=== PATIENT | female | born 1960 | race African-American/Black ===

== ENCOUNTER 2017-03-27 10:09 | Outpatient (CLI) | payer MEDICARE, OTHER ==
[~2017-03-27] VITALS: Ht 154.9 cm; Wt 55.3 kg
[2017-03-27 10:34] VITALS: BP 109/78
[2017-03-27] MEDS ORDERED: MORPHINE IR15 MG ORAL (14:19)
[2017-03-27] MEDS ORDERED: GABAPENTIN300 MG ORAL (14:19)
[2017-03-27] MEDS ORDERED: OXYCODONE IR15 MG ORAL (14:19)
[2017-03-27] MEDS ORDERED: ADALAT20 MG ORAL (14:19)
[2017-03-27] MEDS ORDERED: VENTOLIN HFA18 GM INH (14:19)
[2017-03-27] MEDS ORDERED: ASPIR 8181 MG ORAL (14:19)
--- NOTE | 2017-03-27 14:21 | GI Initial Consult Note ---
History of Present Illness General Date patient seen: Mar 27, 2017 Time patient seen: 14:13 Referring physician: ZOHREH Reason for Consultation: ANEMIA / WT LOSS Present Illness HPI 56 year old female patient referred by Dr. Guerrier for complaint of abdominal pain and weight loss. The patient presents today with approximately 30 lbs weight loss. Last colonoscopy was greater than 5 years ago, pt unsure if she has any history of colonic polyps. No signs of abuse/neglect. Patient is a fall risk. Home Meds Reported Medications Aspirin* (ASPIR 81*) 81 Mg Tablet.dr, 81 MG ORAL DAILY, TAB 03/27/17 Gabapentin* (GABAPENTIN*) 300 Mg Capsule, 300 MG ORAL BEDTIME, CAP 03/27/17 Nifedipine (Nifedipine*) 20 Mg Capsule, 90 MG ORAL EVERY 8 HOURS, CAP 03/27/17 Albuterol Sulfate (VENTOLIN HFA) 18 Gm Hfa.aer.ad, 1 PUFF INH EVERY 6 HOURS, # 18 GM 0 Refills 03/27/17 Oxycodone HCl (Oxycodone HCl) 15 Mg Tablet, 30 MG ORAL Q4H Y, TAB 03/27/17 Morphine HCl (Morphine Sulfate ER) 15 Mg Tablet.er, 15 MG ORAL Q6H Y, TAB 03/27/17 Med list reviewed/reconciled: Yes Allergies: Coded Allergies: PENICILLINS (Verified Allergy, Unknown, 03/27/17) Patient History History Provided By: Patient, Medical Record H Narrative Asthma GERD HTN Anemia Past Surgical History: Left breast cyst removal Family History Narrative Both Brothers >> [place] Social History: Reports: drug use - medical marijuana, other - coffee Review of Systems All Other Systems: negative except mentioned in HPI Physical Exam Vital Signs Date Time Temp Pulse Resp B/P (MAP) Pulse Ox O2 Delivery O2 Flow Rate FiO2 03/27/17 10:34 97.7 70 16 109/78 100 Sp02 EP Interpretation: reviewed, normal General Appearance: well appearing, no apparent distress, alert Head: normocephalic EENT: PERRL/EOMI, normal ENT inspection Neck: supple Respiratory: normal breath sounds, no respiratory distress Cardiovascular: normal rate Gastrointestinal: normal inspection, non tender, soft, normal bowel sounds, non -distended Rectal: deferred Genitourinary: no CVA tenderness Musculoskeletal: normal inspection, back normal Neurologic: normal inspection, alert, oriented x3, responsive Psychiatric: normal inspection, judgement/insight normal, memory normal Skin: normal inspection, normal color, no rash, warm/dry, palpation normal, well hydrated Lymphatic: normal inspection, no adenopathy GI: Plan Problems: (1) Asthma (2) GERD (gastroesophageal reflux disease) (3) Weight loss (4) Anemia (5) HTN (hypertension) (6) Colonoscopy planned Plan EGD/colonoscopy scheduled for 04/04/17. - CLD & (Nulytely/Suprep/Movi-Prep) prep instructions given and acknowledged by patient. - NPO @ [place] day prior procedure explained. Seen with Dr. Torres. Thank you for this patient referral. Zuly Candelaria N.P. Mar 27, 2017 14:21
== END 2017-03-27 11:00 | disposition home or self-care (01) ==
LOC: PAN 10:09
DX: R10.9 Unspecified abdominal pain (principal); R63.4 Abnormal weight loss; Z91.81 History of falling; Z79.82 Long term (current) use of aspirin; Z88.0 Allergy status to penicillin; K21.9 Gastro-esophageal reflux disease without esophagitis; I10 Essential (primary) hypertension; J45.909 Unspecified asthma, uncomplicated; D64.9 Anemia, unspecified
CPT/HCPCS: 99201

== ENCOUNTER 2017-04-04 08:05 | Day surgery (SDC) | payer MEDICARE, OTHER ==
[2017-04-04] VITALS (8 sets, daily range): BP systolic 125–135; BP diastolic 90–96
[~2017-04-04] VITALS: Ht 154.9 cm; Wt 55.3 kg
[~2017-04-04 08:05] MED LIST: ADALAT20 MG ORAL; ASPIR 8181 MG ORAL; GABAPENTIN300 MG ORAL; LR 1000ml 1,000 ML IVLG SCH; MORPHINE IR15 MG ORAL; OXYCODONE IR15 MG ORAL; VENTOLIN HFA18 GM INH
[2017-04-04 09:13] LABS: BASOPHILS % (AUTO) 1.5 % (0.0-2.0); EOSINOPHILS % (AUTO) 0.1 % (0.0-3.0); LYMPHOCYTES % (AUTO) 20.7 % (20.0-45.0); MEAN CORPUSCULAR HEMOGLOBIN 29.3 PG (27.0-31.0); MEAN CORPUSCULAR HGB CONC 32.7 G/DL (32.0-36.0); MEAN CORPUSCULAR VOLUME 90 FL (80-99); MEAN PLATELET VOLUME 8.1 FL (6.5-10.1); MONOCYTES % (AUTO) 8.1 % (1.0-10.0); NEUTROPHILS % (AUTO) 69.7 % (45.0-75.0); PLATELET COUNT 230 K/UL (150-450); RED BLOOD COUNT 4.49 M/UL (4.20-5.40); RED CELL DISTRIBUTION WIDTH 12.3 % (11.6-14.8)
[2017-04-04 09:43] LABS: IRON 101 ug/dL (50-175); TOTAL IRON BINDING CAPACITY 329 ug/dL (250-450)
--- NOTE | 2017-04-04 09:44 | Pre-Procedure Note/Attestation ---
Pre-Procedure Note/Attestation Complete Prior to Procedure Planned Procedure: not applicable Procedure Narrative: esophagogastroduodenoscopy and colonoscopy Indications for Procedure Pre-Operative Diagnosis: anemia, wt loss Attestation I attest that I discussed the nature of the procedure; its benefits; risks and complications; and alternatives (and the risks and benefits of such alternatives ), prior to the procedure, with the patient (or the patient's legal new accounts representative). I attest that, if there was a reasonable possibility of needing a blood transfusion, the patient (or the patient's legal new accounts representative) was given the [facility] standardized written summary, pursuant to the [place] Blood Safety Act ([place] Health and Safety Code # 1645, as amended). I attest that I re-evaluated the patient just prior to the surgery and that there has been no change in the patient's H&P, except as documented below: RENE KENT Apr 04, 2017 09:44
--- NOTE | 2017-04-04 09:45 | Short Stay Surgery H&P ---
History of Present Illness History of Present Illness Chief Complaint see recent consult note HPI Keena Lau is a 56 year old female who was admitted on for Abdominal Pain, Weight Loss Patient History Allergies: Coded Allergies: PENICILLINS (Verified Allergy, Unknown, 04/04/17) cannot remember reaction PAST MEDICAL HISTORY: Past Surgeries: Social History: Medication History Scheduled Albuterol Sulfate (Ventolin Hfa), 1 PUFF INH EVERY 6 HOURS, (Reported) Aspirin* (Aspir 81*), 81 MG ORAL DAILY, (Reported) Gabapentin* (Gabapentin*), 300 MG ORAL BEDTIME, (Reported) Nifedipine (Nifedipine*), 90 MG ORAL EVERY 8 HOURS, (Reported) Scheduled PRN Morphine HCl (Morphine Sulfate ER), 15 MG ORAL Q6H PRN, (Reported) Oxycodone HCl (Oxycodone HCl), 30 MG ORAL Q4H PRN, (Reported) Physical Exam Vital Signs Last Vital Signs Date Time Temp Pulse Resp B/P (MAP) Pulse Ox O2 Delivery O2 Flow Rate FiO2 04/04/17 08:36 98.4 74 20 131/90 100 Room Air Labs Laboratory Tests Test 04/04/17 09:00 White Blood Count 4.0 K/UL (4.8-10.8) L Red Blood Count 4.49 M/UL (4.20-5.40) Hemoglobin 13.2 G/DL (12.0-16.0) Hematocrit 40.3 % (37.0-47.0) Mean Corpuscular Volume 90 FL (80-99) Mean Corpuscular Hemoglobin 29.3 PG (27.0-31.0) Mean Corpuscular Hemoglobin Concent 32.7 G/DL (32.0-36.0) Red Cell Distribution Width 12.3 % (11.6-14.8) Platelet Count 230 K/UL (150-450) Mean Platelet Volume 8.1 FL (6.5-10.1) Neutrophils (%) (Auto) 69.7 % (45.0-75.0) Lymphocytes (%) (Auto) 20.7 % (20.0-45.0) Monocytes (%) (Auto) 8.1 % (1.0-10.0) Eosinophils (%) (Auto) 0.1 % (0.0-3.0) Basophils (%) (Auto) 1.5 % (0.0-2.0) Sodium Level Pending Potassium Level Pending Chloride Level Pending Carbon Dioxide Level Pending Blood Urea Nitrogen Pending Creatinine Pending Estimat Glomerular Filtration Rate Pending Glucose Level Pending Calcium Level Pending Iron Level 101 ug/dL (50-175) Total Iron Binding Capacity 329 ug/dL (250-450) Percent Iron Saturation 31 % (15-50) Unsaturated Iron Binding 228 ug/dL (112-346) Total Bilirubin Pending Aspartate Amino Transf (AST/SGOT) Pending Alanine Aminotransferase (ALT/SGPT) Pending Alkaline Phosphatase Pending Total Protein Pending Albumin Pending Globulin Pending Amylase Level Pending Lipase Pending Plan Attestation Are the patient's medical conditions optimized for surgery? RENE KENT Apr 04, 2017 09:45
[2017-04-04 09:46] LABS: ALANINE AMINOTRANSFERASE 26 U/L (12-78); ALBUMIN/GLOBULIN RATIO 1.1 (1.0-2.7); AMYLASE 73 U/L (25-115); ANION GAP 9 mmol/L (5-15); ASPARTATE AMINO TRANSFERASE 17 U/L (15-37); CALCIUM 9.6 MG/DL (8.5-10.1); CARBON DIOXIDE 29 MMOL/L (21-32); CHLORIDE 105 MMOL/L (98-107); CREATININE 0.9 MG/DL (0.55-1.30); GLOMERULAR FILTRATION RATE > 60 mL/min (>60); LIPASE 103 U/L (73-393); POTASSIUM 3.9 MMOL/L (3.5-5.1); SODIUM 143 MMOL/L (136-145); TOTAL PROTEIN 8.2 G/DL (6.4-8.2)
[2017-04-04] MEDS ORDERED: LR 1000ml ONE (10:00)
[2017-04-04] MEDS ORDERED: Ketamine 500mg Inj ONE (10:00)
[2017-04-04] MEDS ORDERED: Propofol 200mg/20ml IV ONE (10:00)
[2017-04-04] MEDS ORDERED: Midazolam 2mg/2ml Inj ONE (10:00)
[2017-04-04] MEDS ORDERED: Lidocaine 1% MPF 10mg/ml 5ml ONE (10:00)
[2017-04-04] MEDS ORDERED: LR 1000ml 1,000 ML IVLG SCH (10:26)
--- NOTE | 2017-04-04 10:26 | Anethesia Preoperative Eval ---
Anesthesia Pre-op PMH/ROS General Date of Evaluation: Apr 04, 2017 Time of Evaluation: 10:09 Anesthesiologist: Bob ASA Score: ASA 3 Mallampati Score Class I : Soft palate, uvula, fauces, pillars visible Class II: Soft palate, uvula, fauces visible Class III: Soft palate, base of uvula visible Class IV: Only hard plate visible Mallampati Classification: Class II Surgeon: Melissa Diagnosis: Abd Pain Surgical Procedure: EGD/Colonoscopy Anesthesia History: none Social History: current smoker Family History: no anesthesia problems Allergies: Coded Allergies: PENICILLINS (Verified Allergy, Unknown, 04/04/17) cannot remember reaction Medications: see eMAR Past Medical History Cardiovascular: Reports: HTN Pulmonary: Reports: asthma Gastrointestinal/Genitourinary: Reports: GERD Neurologic/Psychiatric: Reports: other - Migranes HEENT: Reports: cataract (L), cataract (R) Hematology/Immune: Reports: anemia PSxH Narrative: Cyst Removal Anesthesia Pre-op Phys. Exam Physician Exam Last Vital Signs Date Time Temp Pulse Resp B/P (MAP) Pulse Ox O2 Delivery O2 Flow Rate FiO2 04/04/17 08:36 98.4 74 20 131/90 100 Room Air Constitutional: NAD Neurologic: CN 2-12 intact Cardiovascular: RRR Respiratory: CTA Gastrointestinal: S/NT/ND Airway Exam Mallampati Score: Class II MO: full ROM: limited Teeth: intact Anesthesia Pre-op A/P Labs Hematology Test 04/04/17 09:00 White Blood Count 4.0 K/UL (4.8-10.8) L Red Blood Count 4.49 M/UL (4.20-5.40) Hemoglobin 13.2 G/DL (12.0-16.0) Hematocrit 40.3 % (37.0-47.0) Mean Corpuscular Volume 90 FL (80-99) Mean Corpuscular Hemoglobin 29.3 PG (27.0-31.0) Mean Corpuscular Hemoglobin Concent 32.7 G/DL (32.0-36.0) Red Cell Distribution Width 12.3 % (11.6-14.8) Platelet Count 230 K/UL (150-450) Mean Platelet Volume 8.1 FL (6.5-10.1) Neutrophils (%) (Auto) 69.7 % (45.0-75.0) Lymphocytes (%) (Auto) 20.7 % (20.0-45.0) Monocytes (%) (Auto) 8.1 % (1.0-10.0) Eosinophils (%) (Auto) 0.1 % (0.0-3.0) Basophils (%) (Auto) 1.5 % (0.0-2.0) Chemistry Test 04/04/17 09:00 Sodium Level 143 MMOL/L (136-145) Potassium Level 3.9 MMOL/L (3.5-5.1) Chloride Level 105 MMOL/L (98-107) Carbon Dioxide Level 29 MMOL/L (21-32) Anion Gap 9 mmol/L (5-15) Blood Urea Nitrogen 12 mg/dL (7-18) Creatinine 0.9 MG/DL (0.55-1.30) Estimat Glomerular Filtration Rate > 60 mL/min (>60) Glucose Level 101 MG/DL (74-106) Calcium Level 9.6 MG/DL (8.5-10.1) Iron Level 101 ug/dL (50-175) Total Iron Binding Capacity 329 ug/dL (250-450) Percent Iron Saturation 31 % (15-50) Unsaturated Iron Binding 228 ug/dL (112-346) Total Bilirubin 0.8 MG/DL (0.2-1.0) Aspartate Amino Transf (AST/SGOT) 17 U/L (15-37) Alanine Aminotransferase (ALT/SGPT) 26 U/L (12-78) Alkaline Phosphatase 67 U/L (46-116) Total Protein 8.2 G/DL (6.4-8.2) Albumin 4.3 G/DL (3.4-5.0) Globulin 3.9 g/dL Albumin/Globulin Ratio 1.1 (1.0-2.7) Amylase Level 73 U/L (25-115) Lipase 103 U/L (73-393) Risk Assessment & Plan Assessment: ASA 3 Plan: GA Status Change Before Surgery: Saroj Jacob MD Apr 04, 2017 10:26
--- NOTE | 2017-04-04 10:28 | Immediate Post-Op Evaluation ---
Immediate Post-Op Evalulation Immediate Post-Op Evalulation Procedure: EGD/Colonoscopy Date of Evaluation: Apr 04, 2017 Time of Evaluation: 11:00 IV Fluids: 700 LR Blood Products: 0 Estimated Blood Loss: 1 Urinary Output: 0 Blood Pressure Systolic: 128 Blood Pressure Diastolic: 96 Pulse Rate: 89 Respiratory Rate: 16 O2 Sat by Pulse Oximetry: 100 Temperature (Fahrenheit): 97.8 Pain Score (1-10): 1 Nausea: No Vomiting: No Complications 0 Patient Status: awake, reacts, patent, none Hydration Status: adequate Saroj Rojas MD Apr 04, 2017 10:28
--- NOTE | 2017-04-04 10:29 | 48 Hour Post Anesthesia Eval ---
Post Anesthesia Evaluation Procedure: EGD/Colonoscopy Date of Evaluation: Apr 04, 2017 Time of Evaluation: 13:12 Blood Pressure Systolic: 132 0: 89 Pulse Rate: 91 Respiratory Rate: 18 Temperature (Fahrenheit): 98.4 O2 Sat by Pulse Oximetry: 99 Airway: patent Nausea: No Vomiting: No Pain Intensity: 1 Hydration Status: adequate Cardiopulmonary Status: Stable Mental Status/LOC: patient returned to baseline Follow-up Care/Observations: 0 Post-Anesthesia Complications: 0 Follow-up care needed: ready to discharge Saroj Rojas MD Apr 04, 2017 10:29
[2017-04-04] MEDS ORDERED: Hydromorphone 0.5mg/0.5ml inj IVP PRN (10:30)
[2017-04-04] MEDS ORDERED: Ketorolac 30mg Inj IV PRN ×2 (10:30)
[2017-04-04] MEDS ORDERED: Atropine Inj 1mg/10ml Syr IV PRN (10:30)
[2017-04-04] MEDS ORDERED: LORazepam Inj 2mg/ml 1ml IV PRN (10:30)
[2017-04-04] MEDS ORDERED: Norco 5mg/325mg tab ORAL PRN (10:30)
[2017-04-04] MEDS ORDERED: fentaNYL 100 mcg/2 mL IV PRN (10:30)
[2017-04-04] MEDS ORDERED: Metoclopramide 10mg/2ml Inj IVP PRN (10:30)
[2017-04-04] MEDS ORDERED: Midazolam 2mg/2ml Inj IVP PRN (10:30)
[2017-04-04] MEDS ORDERED: Norco 7.5mg/325mg tab ORAL PRN (10:30)
[2017-04-04] MEDS ORDERED: oxyCODONE HCL/Acetaminophen 5/325mg ORAL PRN (10:30)
[2017-04-04] MEDS ORDERED: DiphenhydrAMINE 50mg/ml Inj IVP PRN (10:30)
--- NOTE | 2017-04-04 20:01 | Procedure Note ---
DATE OF PROCEDURE: 04/04/2017 SURGEON: Erich Torres M.D. PROCEDURE: Upper endoscopy with biopsy and colonoscopy with biopsy. ANESTHESIOLOGIST: Saroj Rojas M.D. INSTRUMENT: Olympus adult flexible upper endoscope and colonoscope. INDICATION: Screening colonoscopy, abdominal pain, and anemia. REASON FOR PROCEDURE: The procedure, risks, benefits, and possible consequences, including hemorrhage, aspiration, perforation and infection, and alternative treatments, were explained to the patient/legal guardian by Dr. Erich Torres and the patient/legal guardian understood and accepted these risks. DESCRIPTION OF PROCEDURE: After informed consent was obtained and the patient was adequately sedated, Olympus upper endoscope was advanced from mouth into the second portion of the duodenum and retroflexion was performed in the stomach. The patient had evidence of diffuse gastritis. Random biopsy from antrum and body was obtained to rule out H. pylori infection. At this time, the upper endoscope was retrieved. The patient was turned over for colonoscopy. First, a rectal exam was performed which was positive for internal hemorrhoids. Then, the scope was advanced from the rectum into the cecum documented by appendiceal orifice, ileocecal valve, and upper quadrant palpation. Quality of prep was overall good. The patient had a total of 7 diminutive polyps, 6 in the rectosigmoid area, 1 in the sigmoid, which were all removed with biopsy forceps technique. The patient also had some evidence of scattered diverticulosis. No obvious diverticulitis was seen. Retroflexion of rectum showed evidence of internal hemorrhoids. SUMMARY FINDINGS: 1. Gastritis. 2. Seven colonic polyps removed, see above for details. 3. Internal hemorrhoids. 4. Diverticulosis. RECOMMENDATIONS: Followup biopsy results and treat accordingly. Erich Torres M.D. DR: SALLY JOB#: [id number] CC:
--- NOTE | 2017-04-10 11:20 | Endoscopy Procedure Note ---
Endoscopy Procedure Note Indication for Procedure: screening colon, GERD Procedures Performed: EGD, colonoscopy Operative Findings/Diagnosis: 7 polyps Specimen: yes Pt Tolerated Procedure Well: Yes Estimated Blood Loss: none Anesthesiologist: see chart Anesthesia: MAC Implant(s) used?: No 50 yrs or older w/o bx or poly: No 10yrs. F/U not recommended: Yes If not recommended, why?: Above average risk 10 yrs. F/U needed: Yes 18 years or older w/prev. colo: No RENE KENT Apr 10, 2017 11:20
== END 2017-04-04 12:25 | disposition home or self-care (01) ==
LOC: GAS 08:05
DX: Z12.11 Encounter for screening for malignant neoplasm of colon (principal); R10.9 Unspecified abdominal pain; D12.7 Benign neoplasm of rectosigmoid junction; K29.50 Unspecified chronic gastritis without bleeding; D64.9 Anemia, unspecified; K63.5 Polyp of colon; K64.8 Other hemorrhoids; K57.90 Diverticulosis of intestine, part unspecified, without perforation or abscess without bleeding; Z88.0 Allergy status to penicillin; I10 Essential (primary) hypertension; K21.9 Gastro-esophageal reflux disease without esophagitis; F17.200 Nicotine dependence, unspecified, uncomplicated; Z79.82 Long term (current) use of aspirin
CPT/HCPCS: 36415; 43239; 45380; 80053; 82150; 83540; 83550; 83690; 85025; 93005; J2250; J2704; J3490; J7120; 94003; 94150

== ENCOUNTER 2017-04-26 13:49 | Outpatient (CLI) | payer MEDICARE, OTHER ==
[~2017-04-26 13:49] MED LIST changes: -LR 1000ml 1,000 ML IVLG SCH
[2017-04-26 14:05] VITALS: BP 121/93
--- NOTE | 2017-04-26 14:24 | GI Progress Note ---
Assessment/Plan Problems: (1) Anemia ICD Codes: D64.9 - Anemia, unspecified SNOMED: 759894880 (2) Weight loss ICD Codes: R63.4 - Abnormal weight loss SNOMED: 66542687, 831640876 (3) GERD (gastroesophageal reflux disease) ICD Codes: K21.9 - Gastro-esophageal reflux disease without esophagitis SNOMED: 908366902 (4) Asthma ICD Codes: J45.909 - Unspecified asthma, uncomplicated SNOMED: 601384499 Status: stable Status Narrative Seen with Dr. Torres. Assessment/Plan s/p EGD/colonoscopy SUMMARY FINDINGS: 1. Gastritis. 2. Seven colonic polyps removed, see above for details. 3. Internal hemorrhoids. 4. Diverticulosis. CEA >> WNL Chronic abdominal pain RECOMMENDATIONS: scheduled for Capsule Endoscopy given Anemia. Followup biopsy results and treat accordingly >> negative for HP repeat colonoscopy in 3 years given colonic polyps Subjective Subjective abdominal pain anemia Objective Last 24 Hour Vital Signs Date Time Temp Pulse Resp B/P (MAP) Pulse Ox O2 Delivery O2 Flow Rate FiO2 04/26/17 14:05 97.7 90 16 121/93 98 General Appearance: WD/WN, no apparent distress, alert Cardiovascular: normal rate Respiratory/Chest: normal breath sounds, no respiratory distress Abdominal Exam: normal bowel sounds, non tender, soft Extremities: normal range of motion, non-tender Zuly Candelaria N.P. Apr 26, 2017 14:24
== END 2017-04-26 14:22 | disposition home or self-care (01) ==
LOC: PAN 13:49
DX: D64.9 Anemia, unspecified (principal); R63.4 Abnormal weight loss; K21.9 Gastro-esophageal reflux disease without esophagitis; J45.909 Unspecified asthma, uncomplicated; K63.5 Polyp of colon; K64.8 Other hemorrhoids; K57.90 Diverticulosis of intestine, part unspecified, without perforation or abscess without bleeding; K29.70 Gastritis, unspecified, without bleeding
CPT/HCPCS: 99212

== ENCOUNTER 2017-05-03 09:18 | Outpatient (CLI) | payer MEDICARE, OTHER ==
[2017-05-03 09:52] VITALS: BP 122/88
--- NOTE | 2017-05-03 13:08 | GI Progress Note ---
Assessment/Plan Problems: (1) Encounter for diagnostic endoscopy ICD Codes: Z01.818 - Encounter for other preprocedural examination SNOMED: 805433570, 655394968 (2) Anemia ICD Codes: D64.9 - Anemia, unspecified SNOMED: 140488971 (3) Weight loss ICD Codes: R63.4 - Abnormal weight loss SNOMED: 57843143, 654653542 Status: stable Status Narrative Seen with Dr. Torres. Assessment/Plan SBCE today. RTC tomorrow for equipment return. Subjective Gastrointestinal/Abdominal: Reports: no symptoms Objective Last 24 Hour Vital Signs Date Time Temp Pulse Resp B/P (MAP) Pulse Ox O2 Delivery O2 Flow Rate FiO2 05/03/17 09:52 98.4 92 16 122/88 97 General Appearance: WD/WN, no apparent distress, alert Cardiovascular: normal rate Respiratory/Chest: normal breath sounds, no respiratory distress Abdominal Exam: normal bowel sounds, non tender, soft Extremities: normal range of motion, non-tender Zuly Candelaria N.P. May 03, 2017 13:08
--- NOTE | 2017-05-23 09:42 | Procedure Note ---
DATE OF PROCEDURE: 05/03/2017 SURGEON: Erich Torres M.D. PROCEDURE: Capsule endoscopy. REFERRING PHYSICIAN: Rajendra Guerrier M.D. INDICATION: Anemia. The procedure, risks, benefits, and possible consequences, including hemorrhage, aspiration, perforation and infection, and alternative treatments, were explained to the patient/legal guardian by Dr. Erich Torres and the patient/legal guardian understood and accepted these risks. DESCRIPTION OF PROCEDURE: The patient swallowed the capsule. The capsule spent about 7 minutes in the stomach and then entered the small intestine. We do not know exactly what happened because after 1 hour and 29 minutes, we saw the colon. It is a possibility that the capsule really went fast through the small intestine maybe the machine was off and then turned on later when the capsule was already in the colon. So, this is very limited examination, only 1 hour and 29 minutes up to small intestine. There was no obvious finding at this short time. RECOMMENDATIONS: Suspicious for small intestine pathology. I will recommend repeat capsule endoscopy. Otherwise, we will follow the patient. I want to thank Dr. Rajendra Guerrier for this kind referral. Erich Torres M.D. DR: SHON JOB#: [id number] CC: Rajendra Guerrier M.D.; Fax#: [phone]
== END 2017-05-03 09:52 | disposition home or self-care (01) ==
LOC: PAN 09:18
DX: Z01.818 Encounter for other preprocedural examination (principal); D64.9 Anemia, unspecified; R63.4 Abnormal weight loss

== ENCOUNTER 2017-07-12 14:01 | Outpatient (CLI) | payer MEDICARE, OTHER ==
--- NOTE | 2017-07-12 15:58 | GI Progress Note ---
Assessment/Plan Problems: (1) Encounter for diagnostic endoscopy ICD Codes: Z01.818 - Encounter for other preprocedural examination SNOMED: 301663730, 281745502 (2) Weight loss ICD Codes: R63.4 - Abnormal weight loss SNOMED: 83234794, 172736292 (3) Anemia ICD Codes: D64.9 - Anemia, unspecified SNOMED: 132885066 (4) GERD (gastroesophageal reflux disease) ICD Codes: K21.9 - Gastro-esophageal reflux disease without esophagitis SNOMED: 456878011 (5) Colonoscopy planned SNOMED: 715252230 Status: stable Status Narrative Seen with Dr. Torres. Assessment/Plan CT AP reviewed >> negative EGD/colonoscopy reviewed >> unremarkable Capsule endoscopy reviewed >> negative Trial Rx Benytl RTC x 1 month Subjective Gastrointestinal/Abdominal: Reports: no symptoms Objective T 98.2 BP 110/88 P 75 98 RA General Appearance: WD/WN, no apparent distress, alert Cardiovascular: normal rate Respiratory/Chest: normal breath sounds, no respiratory distress Abdominal Exam: normal bowel sounds, non tender, soft Extremities: normal range of motion, non-tender Zuly Candelaria N.P. Jul 12, 2017 15:58
== END 2017-07-12 14:33 | disposition home or self-care (01) ==
LOC: PAN 14:01
DX: Z01.818 Encounter for other preprocedural examination (principal); R63.4 Abnormal weight loss; D64.9 Anemia, unspecified; K21.9 Gastro-esophageal reflux disease without esophagitis
CPT/HCPCS: 99211

== ENCOUNTER 2018-01-01 10:32 | Outpatient (CLI) | payer MEDICARE, OTHER ==
[2018-01-01 14:21] VITALS: BP 111/67
--- NOTE | 2018-01-01 15:35 | GI Progress Note ---
Assessment/Plan Problems: (1) Anemia ICD Codes: D64.9 - Anemia, unspecified SNOMED: 195370133 (2) Weight loss ICD Codes: R63.4 - Abnormal weight loss SNOMED: 47626119, 503055680 (3) GERD (gastroesophageal reflux disease) ICD Codes: K21.9 - Gastro-esophageal reflux disease without esophagitis SNOMED: 012636794 Status: stable Status Narrative Seen with Dr. Torres. Assessment/Plan CT AP reviewed >> negative EGD/colonoscopy reviewed >> unremarkable Capsule endoscopy reviewed >> negative cont Rx Benytl RTC x 3 month Subjective Subjective epigastric pain weight loss Objective Last 24 Hour Vital Signs Date Time Temp Pulse Resp B/P (MAP) Pulse Ox O2 Delivery O2 Flow Rate FiO2 01/01/18 14:21 98.0 82 111/67 90 98.0 General Appearance: WD/WN, no apparent distress, alert Cardiovascular: normal rate Respiratory/Chest: normal breath sounds, no respiratory distress Abdominal Exam: normal bowel sounds, non tender, soft Extremities: normal range of motion, non-tender Sean Candelaria PARAEDUCATOR Jan 01, 2018 15:35
== END 2018-01-01 11:03 | disposition home or self-care (01) ==
LOC: PAN 10:32
DX: D64.9 Anemia, unspecified (principal); R63.4 Abnormal weight loss; K21.9 Gastro-esophageal reflux disease without esophagitis
CPT/HCPCS: 99212

== ENCOUNTER 2018-04-29 14:25 | Outpatient (CLI) | payer MEDICARE, OTHER ==
[2018-04-29 14:00] VITALS: BP 110/78
--- NOTE | 2018-04-29 15:10 | GI Progress Note ---
Assessment/Plan Problems: (1) Constipation ICD Codes: K59.00 - Constipation, unspecified SNOMED: 85144774 (2) Weight loss ICD Codes: R63.4 - Abnormal weight loss SNOMED: 88298336, 555952088 (3) GERD (gastroesophageal reflux disease) ICD Codes: K21.9 - Gastro-esophageal reflux disease without esophagitis SNOMED: 537058402 (4) Anemia ICD Codes: D64.9 - Anemia, unspecified SNOMED: 642144462 Status: stable Status Narrative Seen with Dr. Torres. Assessment/Plan refill Bentyl add linzess 72mcg RTC x 3 months The patient was seen and examined at bedside and all new and available data was reviewed in the patients chart. I agree with the above findings, impression and plan. (Patient seen earlier today. Signature stamp does not reflect patient encounter time.). - Erich Torres MD Subjective Subjective constipated Objective t 97.9 BP 110/78 P 90 97 RA General Appearance: WD/WN, no apparent distress, alert Cardiovascular: normal rate Respiratory/Chest: normal breath sounds, no respiratory distress Abdominal Exam: normal bowel sounds, non tender, soft Extremities: normal range of motion, non-tender Sean Candelaria NP Apr 29, 2018 15:10
== END 2018-04-29 14:55 | disposition home or self-care (01) ==
LOC: PAN 14:25
DX: K59.00 Constipation, unspecified (principal); R63.4 Abnormal weight loss; K21.9 Gastro-esophageal reflux disease without esophagitis; D64.9 Anemia, unspecified
CPT/HCPCS: 99212

== ENCOUNTER 2019-07-31 10:55 | Outpatient (CLI) | payer MEDICARE, OTHER ==
--- NOTE | 2019-07-31 13:09 | Diagnostic Imaging Report ---
Indication: Neck pain Technique: MRI examination of the cervical spine was performed in a 1.5 Jade magnet. Sequences obtained include sagittal and axial T1 and T2 fast spin echo, and sagittal STIR. Comparison: none Findings: Bone marrow: Normal Alignment: Mild retrolisthesis easily demonstrated at C3-4 C4-5 C5-6. Soft tissues: Unremarkable Spinal cord: Unremarkable. C1-2: Unremarkable. C2-3: Mild left foraminal stenosis demonstrated secondary to uncovertebral and facet arthropathy. There is no narrowing of the lateral recess. The central canal is patent. The disc appears normal in height and signal. C3-4: Disc height is relatively normal. There is a mild concentric disc bulge present indenting the anterior surface of the cord with moderate deformity noted and moderate central stenosis. There is no myelomalacia or intrinsic signal alteration within the cord. Moderate uncovertebral and facet arthropathy demonstrated. There is moderate bilateral foraminal stenosis. C4-5: There is moderate loss of disc height and desiccation with the marginal anterior endplate spurs. There is a concentric disc bulge indenting the anterior surface of cord which is moderately deformed. There is moderate central spinal stenosis. There is moderate to severe bilateral neural foraminal stenosis due to uncovertebral and facet arthropathy. C5-6: Moderate loss of disc height and desiccation demonstrated. There is no disc herniation. The central canal appears patent. There is moderate bilateral foraminal stenosis due to uncovertebral/facet arthropathy. C6-7: Moderate loss of disc height demonstrated. There is a minimal concentric disc bulge indenting the anterior thecal sac. Moderate left foraminal stenosis and mild right foraminal stenosis due to uncovertebral arthropathy demonstrated. C7-T1: The spinal canal is patent centrally and normal in diameter. There is a mild to moderate bilateral neural foraminal stenosis due to uncovertebral/facet arthropathy. Disc height is normal. There is minimal concentric disc bulge present. IMPRESSION: Degenerative disease of the cervical spine as described above. This involves both intervertebral discs, facets and uncovertebral joints.
--- NOTE | 2019-07-31 14:02 | Diagnostic Imaging Report ---
Indication: Back pain Technique: MRI examination of the lumbar spine was performed in a 1.5 Jade magnet. Sequences obtained include sagittal and axial T1 and T2 fast spin echo, and sagittal STIR. Comparison: none Findings: Bone marrow signal: L4-5 and L5-S1 discussed below. Remainder of bone marrow signal normal. Curvature/alignment: Normal. Soft tissues: Unremarkable. Conus medullaris/distal spinal cord: Unremarkable. T12-L1: Unremarkable L1-2: Unremarkable L2-3: Unremarkable. L3-4: Unremarkable. L4-5: Moderate loss of disc height, desiccation, vertebral endplate spur demonstrated. Modic type II fatty marrow changes noted at the endplates. There is a concentric disc bulge indenting the anterior part of the thecal sac. Mild hypertrophy of the facets noted. Mild narrowing of the neural foramina demonstrated. The central canal lateral recesses appear patent. L5-S1: Concentric disc bulge demonstrated with desiccation and loss of disc height. There is abutting of the traversing S1 nerve roots bilaterally. The right S1 nerve root may be slightly displaced. Central canal is patent. There is no lateral recess stenosis. Moderate facet arthropathy noted. There is mild to moderate neural foraminal stenosis. IMPRESSION: Degenerative changes at L4-5 and L5-S1
== END 2019-07-31 12:55 | disposition home or self-care (01) ==
LOC: MRI 10:55
DX: M54.9 Dorsalgia, unspecified (principal); M54.2 Cervicalgia; M50.30 Other cervical disc degeneration, unspecified cervical region; M48.07 Spinal stenosis, lumbosacral region; M48.02 Spinal stenosis, cervical region
CPT/HCPCS: 72141; 72148

== ENCOUNTER 2020-06-14 09:04 | Day surgery (SDC) | payer MEDICARE, OTHER ==
[~2020-06-14] VITALS: Ht 160 cm; Wt 53.5 kg
[2020-06-14] VITALS (8 sets, daily range): BP systolic 110–134; BP diastolic 81–93
--- NOTE | 2020-06-14 07:35 | Anethesia Preoperative Eval ---
Anesthesia Pre-op PMH/ROS General Date of Evaluation: Jun 14, 2020 Time of Evaluation: 07:29 Anesthesiologist: polina ASA Score: ASA 3 Mallampati Score Class I : Soft palate, uvula, fauces, pillars visible Class II: Soft palate, uvula, fauces visible Class III: Soft palate, base of uvula visible Class IV: Only hard plate visible Mallampati Classification: Class II Surgeon: nixon Diagnosis: gerd, polyps Surgical Procedure: egd/colonoscopy Anesthesia History: none Social History: drug use - medical marijuana Family History: no anesthesia problems Allergies: Coded Allergies: PENICILLINS (Verified Allergy, Unknown, 04/04/17) cannot remember reaction Medications: see eMAR Patient NPO?: Yes Past Medical History Cardiovascular: Reports: HTN, other - hypercholesterolemia Pulmonary: Reports: asthma Gastrointestinal/Genitourinary: Reports: GERD, other - gastritis, weight loss Neurologic/Psychiatric: Reports: other - migraine headache HEENT: Reports: cataract (L), cataract (R) Hematology/Immune: Reports: anemia, other Musculoskeletal/Integumentary: Reports: other - carpal tunnel syndrome PSxH Narrative: breast sx, colonoscopy, endoscopy, ctr Anesthesia Pre-op Phys. Exam Physician Exam Last Vital Signs Date Time Temp Pulse Resp B/P (MAP) Pulse Ox O2 Delivery O2 Flow Rate FiO2 06/14/20 09:36 97.8 88 18 110/86 98 Room Air Constitutional: NAD Neurologic: CN 2-12 intact Cardiovascular: RRR Respiratory: CTA Gastrointestinal: S/NT/ND Airway Exam Mallampati Score: Class II MO: limited Neck: flexible TMD: 2fb ROM: limited Anesthesia Pre-op A/P Labs Microbiology Date/Time Source Procedure Growth Status 06/10/20 09:20 Nasopharynx Coronavirus COVID-19 PCR ([facility]) - Final Complete Studies Pre-op Studies: EKG - nsr Risk Assessment & Plan Assessment: asa3 Plan: mac Status Change Before Surgery: No Pre-Antibiotics Drug: Jennifer Domingo MD Jun 14, 2020 07:35
[~2020-06-14 09:04] MED LIST changes: +Atropine Inj 1mg/10ml Syr IVP PRN; +DiphenhydrAMINE 50mg/ml Inj IVP PRN; +LR 1000ml 1,000 ML IVLG SCH; +Midazolam 2mg/2ml Inj IVP PRN; +fentaNYL 100 mcg/2 mL IV PRN
[2020-06-14] MEDS ORDERED: Lidocaine 1% MPF 10mg/ml 5ml ONE (09:05)
[2020-06-14] MEDS ORDERED: LR 1000ml ONE (09:05)
[2020-06-14] MEDS ORDERED: MSCONTIN PO (09:33)
[2020-06-14] MEDS ORDERED: LR 1000ml 1,000 ML IVLG SCH (10:00)
--- NOTE | 2020-06-14 10:23 | Pre-Procedure Note/Attestation ---
Pre-Procedure Note/Attestation Complete Prior to Procedure Planned Procedure: not applicable Procedure Narrative: esophagogastroduodenoscopy and colonoscopy Indications for Procedure Pre-Operative Diagnosis: gerd, screening colon Attestation I attest that I discussed the nature of the procedure; its benefits; risks and complications; and alternatives (and the risks and benefits of such al ternatives), prior to the procedure, with the patient (or the patient's legal safety representative). I attest that, if there was a reasonable possibility of needing a blood transfusion, the patient (or the patient's legal safety representative) was given the [facility] standardized written summary, pursuant to the [place] Blood Safety Act ([place] Health and Safety Code # 1645, as amended). I attest that I re-evaluated the patient just prior to the surgery and that there has been no change in the patient's H&P, except as documented below: Erich Torres MD Jun 14, 2020 10:23
--- NOTE | 2020-06-14 10:23 | Short Stay Surgery H&P ---
History of Present Illness History of Present Illness Chief Complaint see office note HPI Keena Lau is a 60 year old female who was admitted on for Gerd,Polyps Patient History Allergies: Coded Allergies: PENICILLINS (Verified Allergy, Unknown, 04/04/17) cannot remember reaction Medication History Scheduled Albuterol Sulfate (Ventolin Hfa), 1 PUFF INH EVERY 6 HOURS, (Reported) Aspirin* (Aspir 81*), 81 MG ORAL DAILY, (Reported) Gabapentin* (Gabapentin*), 300 MG ORAL BEDTIME, (Reported) Nifedipine (Nifedipine*), 90 MG ORAL EVERY 8 HOURS, (Reported) [mscontin], 60 MG PO BID, (Reported) Scheduled PRN Morphine HCl (Morphine Sulfate ER), 15 MG ORAL Q6H PRN, (Reported) Discontinued Medications Oxycodone HCl (Oxycodone HCl), 30 MG ORAL Q4H PRN, (Reported) Discontinued Reason: Pt stopped taking med Physical Exam Vital Signs Last Vital Signs Date Time Temp Pulse Resp B/P (MAP) Pulse Ox O2 Delivery O2 Flow Rate FiO2 06/14/20 09:37 Room Air 06/14/20 09:36 97.8 88 18 110/86 98 Plan Attestation Are the patient's medical conditions optimized for surgery? Erich Torres MD Jun 14, 2020 10:23
--- NOTE | 2020-06-14 10:44 | Endoscopy Procedure Note ---
Endoscopy Procedure Note General Indication for Procedure: gerd, screening colon Procedures Performed: EGD, colonoscopy Operative Findings/Diagnosis: gastritis, one colon polyp Specimen: yes Pt Tolerated Procedure Well: Yes Estimated Blood Loss: none Anesthesia Anesthesiologist: jung scott Anesthesia: MAC Inserted Devices Implant(s) used?: No Quality Quality of Bowel Preparation: Good Did scope reach the cecum?: Yes Was there any complications?: No GI Core Measures 50 yrs or older w/o bx or poly: No 10yrs. F/U recommended: Yes 18 years or older w/prev. colo: No Erich Torres MD Jun 14, 2020 10:44
--- NOTE | 2020-06-14 10:57 | Immediate Post-Op Evaluation ---
Immediate Post-Op Evalulation Immediate Post-Op Evalulation Procedure: egd/colonoscopy w/bx Date of Evaluation: Jun 14, 2020 Time of Evaluation: 10:57 IV Fluids: 450ml lr Blood Products: none Estimated Blood Loss: negligible Blood Pressure Systolic: 122 Blood Pressure Diastolic: 80 Pulse Rate: 83 Respiratory Rate: 18 O2 Sat by Pulse Oximetry: 100 Temperature (Fahrenheit): 97.3 Pain Score (1-10): 0 Nausea: No Vomiting: No Complications none Patient Status: awake, reacts, patent Hydration Status: adequate Drug: Jennifer Domingo MD Jun 14, 2020 10:57
--- NOTE | 2020-06-14 10:58 | 48 Hour Post Anesthesia Eval ---
Post Anesthesia Evaluation Procedure: egd/colonoscopy w/bx Date of Evaluation: Jun 14, 2020 Time of Evaluation: 10:59 Blood Pressure Systolic: 116 0: 83 Pulse Rate: 83 Respiratory Rate: 18 Temperature (Fahrenheit): 97.3 O2 Sat by Pulse Oximetry: 100 Airway: patent Nausea: No Vomiting: No Pain Intensity: 0 Hydration Status: adequate Cardiopulmonary Status: stable Mental Status/LOC: patient returned to baseline Post-Anesthesia Complications: none Follow-up care needed: N/A Jennifer Bell MD Jun 14, 2020 10:58
--- NOTE | 2020-06-14 11:29 | Procedure Note ---
DATE OF PROCEDURE: 06/14/2020 SURGEON: Erich Torres MD. PROCEDURE: Upper endoscopy with biopsy and colonoscopy with biopsy. ANESTHESIA: Per Dr. Calabrese. INSTRUMENT: Olympus adult flexible upper endoscope and colonoscope. INDICATION: Screening colonoscopy evaluation and chronic GERD. REASON FOR PROCEDURE: The procedure, risks, benefits, and possible consequences, including hemorrhage, aspiration, perforation and infection, and alternative treatments, were explained to the patient/legal guardian by Dr. Erich Torres and the patient/legal guardian understood and accepted these risks. PROCEDURE IN DETAIL: After informed consent was obtained and the patient was adequately sedated, Olympus upper endoscope was advanced from mouth into the second portion of the duodenum and retroflexion was performed in the stomach. The patient had multiple erosions in the of the stomach. Also, the patient had [id number] atrophic gastritis. Random biopsy from antrum and body was obtained to rule out H. pylori infection. The rest of the examination grossly within normal limits. At this time, the upper endoscope was retrieved and the patient was turned over for colonoscopy. First, rectal exam was performed, which was positive for internal hemorrhoids. Then, the scope was advanced from rectum into the cecum, documented by appendix orifice, ileocecal valve, right upper quadrant palpation. Quality of prep overall was very good. The patient had one diminutive polyp in the rectosigmoid area, which was removed with cold biopsy forceps technique. The rest of the examination grossly within normal limits. Retroflexion of rectum showed evidence of internal hemorrhoids. The patient tolerated the procedure very well without any complications. SUMMARY OF FINDINGS: 1. Multiple antral erosions. 2. Atrophic gastritis. 3. Internal hemorrhoids. 4. One colonic polyp removed, see above for details. RECOMMENDATIONS: Follow pathology and treat accordingly. We recommend repeat colonoscopy in five years. Erich Torres M.D. DR: KELLY JOB#: [id number] CC:
== END 2020-06-14 12:00 | disposition home or self-care (01) ==
LOC: GAS 09:04
DX: Z12.11 Encounter for screening for malignant neoplasm of colon (principal); K21.9 Gastro-esophageal reflux disease without esophagitis; K29.50 Unspecified chronic gastritis without bleeding; K64.8 Other hemorrhoids; K63.5 Polyp of colon; Z88.0 Allergy status to penicillin; Z79.82 Long term (current) use of aspirin; Z79.899 Other long term (current) drug therapy; E78.00 Pure hypercholesterolemia, unspecified; I10 Essential (primary) hypertension; D64.9 Anemia, unspecified
CPT/HCPCS: 43239; 45380; 94003; J2704; J7120; U0004; 94150